=== PATIENT | female | born 1995 | race Caucasian/White ===

== ENCOUNTER 2018-08-05 09:58 | Outpatient (CLI) | payer OTHER ==
--- NOTE | 2018-08-05 12:33 | RAD ---
SI JOINTS: Date: 08/05/18 HISTORY: 23-year-old female with history of low back pain for years. FINDINGS: Views of the SI joints demonstrate no significant ankylosis or periarticular bony erosive or destruct carmelita changes. IMPRESSION: Unremarkable SI joints. POS: JANE
--- NOTE | 2018-08-05 12:33 | RAD ---
LEFT HIP 2 VIEWS: Date: 08/05/18 HISTORY: 23-year-old female with history of low back pain and left hip pain. FINDINGS/IMPRESSION: No fracture, dislocation, or other significant acute osseous abnormality. POS: JANE
== END 2018-08-05 09:59 | disposition home or self-care (01) ==
LOC: SCSRAD 09:58
PROVIDERS: ATTEND Family Medicine
DX: M25.552 Pain in left hip (principal)
CPT/HCPCS: 72202